=== PATIENT | male | born 1965 | race Hispanic/Latino ===

== ENCOUNTER 2016-07-25 20:39 | Inpatient (IN) | payer OTHER ==
[2016-07-25 21:00] VITALS: BMI 26.6
[2016-07-25] MEDS ORDERED: Sodium Chloride 0.9% 1,000 ML IV STA (21:39)
[2016-07-25] MEDS ORDERED: Morphine 4 mg/ml ISec IVP STA (21:39)
--- NOTE | 2016-07-25 21:45 | ED PDOC ---
Arrival/HPI - General Chief Complaint: Abdominal Pain Time Seen by Provider: 07/25/16 21:15 Historian: Patient - History of Present Illness Narrative History of Present Illness (Text): 07/25/16 21:42 Pato Franco is a 51 year old male, with a past medical history of GERD and GI ulcers, presents to the emergency department complaining of constant abdominal pain since 12 a.m. last night. Patient states that a recent endoscopy revealed a throat mass, which was subsequently excised. Patient complains of associated nausea, but denies vomiting and diarrhea. Patient states that he spoke with his GI doctor, Dr. Zepeda, over the phone who advised him to present to ed for evaluation. Patient reports last bowel movement was today morning which was normal. Took OTC antacids an hour prior to arrival for minimal relief. Denies fever, chills, headache, dizziness, chest pain, SOB, urinary symptoms or any other complaints at this time. PMD: Time/Duration: 24 hours (since 12 a.m today ) Symptom Onset: Gradual Symptom Course: Worsening Quality: Stabbing Severity Level: Mild Activities at Onset: Light Context: Home Past Medical History - Provider Review Nursing Documentation Reviewed: Yes - Past History Past History: No Previous - Infectious Disease Hx of Infectious Diseases: None - Gastrointestinal Hx Gastroesophageal Reflux: Yes Hx Gastrointestinal Ulcer: Yes - Psychiatric Hx Depression: No Hx Emotional Abuse: No Hx Physical Abuse: No Hx Substance Use: No - Past Surgical History Past Surgical History: No Previous - Anesthesia Hx Anesthesia: Yes Hx Anesthesia Reactions: No Hx Malignant Hyperthermia: No - Suicidal Assessment Feels Threatened In Home Enviroment: No Family/Social History - Physician Review Nursing Documentation Reviewed: Yes Family/Social History: No Known Family HX Smoking Status: Heavy Smoker > 10 Cigarettes Daily Hx Alcohol Use: No Hx Substance Use: No Allergies/Home Meds Allergies/Adverse Reactions: Allergies No Known Allergies Allergy (Verified 07/05/12 17:44) Home Medications: Home Meds Medication Instructions Recorded Confirmed No Known Home Med 07/05/12 07/05/12 Review of Systems - Physician Review All systems were reviewed & negative as marked: Yes - Review of Systems Constitutional: Normal. absent: Fatigue, Fevers Respiratory: Normal. absent: SOB, Cough Cardiovascular: Normal. absent: Chest Pain, Palpitations Gastrointestinal: Abdominal Pain, Nausea. absent: Diarrhea, Vomiting Genitourinary Male: Normal. absent: Dysuria Musculoskeletal: Normal. absent: Back Pain Neurological: Normal. absent: Headache, Dizziness Psychiatric: Normal Physical Exam Vital Signs Reviewed: Yes Vital Signs Temp Pulse Resp BP Pulse Ox 07/26/16 01:15 70 18 154/76 H 99 07/25/16 21:03 98.5 F 110 H 18 161/81 H 97 Temperature: Afebrile Blood Pressure: Hypertensive Pulse: Tachycardic Respiratory Rate: Normal Appearance: Positive for: Well-Appearing, Non-Toxic, Comfortable Pain Distress: None Mental Status: Positive for: Alert and Oriented X 3 - Systems Exam Head: Present: Atraumatic, Normocephalic Pupils: Present: PERRL Extroacular Muscles: Present: EOMI Conjunctiva: Present: Normal Respiratory/Chest: Present: Clear to Auscultation, Good Air Exchange. No: Respiratory Distress, Accessory Muscle Use Cardiovascular: Present: Regular Rate and Rhythm, Normal S1, S2. No: Murmurs Abdomen: Present: Tenderness (Right sided abdominal tenderness with guarding. ) , Normal Bowel Sounds. No: Distention, Peritoneal Signs, Rebound Neurological: Present: GCS=15, CN II-XII Intact, Speech Normal Skin: Present: Warm, Dry, Normal Color. No: Rashes Psychiatric: Present: Alert, Oriented x 3, Normal Insight, Normal Concentration Medical Decision Making ED Course and Treatment: 07/25/16 22:02 Impression: A 51 year old male who presents to the ed for evaluation of abdominal pain since 12 am today. On PE, patient has right sided tenderness with guarding. Differential Diagnosis: Abdominal pain: r/o gastritis vs. cholecystitis vs. appendicitis. Plan: -- CT abdomen pelvis -- Labs, lipase -- Morphine -- IV fluids Progress Notes: 07/26/16 00:59 CT abdomen pelvis results reviewed: IMPRESSION: There is short segment small bowel wall thickening in the lower mid to left abdomen. There is an approximately 26 x 24 x 22 mm diverticulum versus contained perforation with adjacent stranding. No free air. Correlation with prior studies and followup imaging is recommended. 07/26/16 01:[address] Trevizo who accepts patient under his service with on surgical consult. Discussed case with residential appraiser who will evaluate patient on bedside. 07/26/16 01:52 Dr. Vogel's, Sonography Technician Dr. Landeros, came to evaluate patient. She discussed case with Dr. Vogel and states no surgical intervention at this time. Will continue IV antibiotics Cipro and Flagyl as already ordered and given. - Critical Care Critical Care Minutes: 30 minutes - Lab Interpretations Lab Results: 07/25/16 22:27 07/25/16 22:27 Lab Results 07/26/16 00:35: PT 11.5, INR 1.06, APTT 33.7 H 07/25/16 22:27: WBC 18.8 H, RBC 5.27, Hgb 16.1, Hct 45.4, MCV 86.1, MCH 30.6, MCHC 35.5, RDW 13.5, Plt Count 265, MPV 10.4, Gran % 76.0 H, Lymph % (Auto) 15.6 L, [place] % (Auto) 7.9 H, Eos % (Auto) 0.3 L, Baso % (Auto) 0.2, Gran # 14.31 H, Lymph # 2.9, [place] # 1.5 H, Eos # 0.1, Baso # 0.04, Sodium 141, Potassium 4.1, Chloride 101, Carbon Dioxide 31, Anion Gap 13, BUN 11, Creatinine 0.8, Est GFR ( Amer) > 60, Est GFR (Non-Af Amer) > 60, Random Glucose 108, Calcium 9.7, Total Bilirubin 0.8, AST 13 L, ALT 10, Alkaline Phosphatase 96, Total Protein 7.8, Albumin 4.1, Globulin 3.7, Albumin/Globulin Ratio 1.1, Lipase 58 I have reviewed the lab results: Yes Interpretation: Abnormal lab values (elevated wbc) - RAD Interpretation Narrative RAD Interpretations (Text): EXAM: CT Abdomen and Pelvis With Intravenous Contrast. FINDINGS: Lower thorax: No acute findings. ABDOMEN: Liver: No acute findings. No mass. Gallbladder and bile ducts: No acute findings. No calcified stones. No ductal dilation. Pancreas: No acute findings. No mass. No ductal dilation. Spleen: No acute findings. No splenomegaly. Adrenals: No acute findings. No mass. Kidneys and ureters: No acute findings. No solid mass. No hydronephrosis. Stomach and bowel: There is short segment small bowel wall thickening in the lower mid to left abdomen. There is an approximately 26 x 24 x 22 mm diverticulum versus contained perforation with adjacent stranding. No free air. Appendix: No findings to suggest acute appendicitis. PELVIS: Bladder: No acute findings. No mass. Reproductive: No acute findings. ABDOMEN and PELVIS: Intraperitoneal space: See above. Bones/joints: No acute fracture. No dislocation. Soft tissues: No acute findings. Vasculature: No acute findings. No abdominal aortic aneurysm. Lymph nodes: No acute findings. No enlarged lymph nodes. IMPRESSION: There is short segment small bowel wall thickening in the lower mid to left abdomen. There is an approximately 26 x 24 x 22 mm diverticulum versus contained perforation with adjacent stranding. No free air. Correlation with prior studies and followup imaging is recommended. Radiology Orders: 07/25/16 21:40 ABD & PELVIS IV CONTRAST ONLY [CT] Stat [employer] Support: Radiologist - Medication Orders Current Medication Orders: Ciprofloxacin (Cipro 400mg/200ml Dsw) 200 mls @ 133.3 mls/hr IVPB STAT STA PRN Reason: Protocol Stop: 07/26/16 02:28 Metronidazole (Flagyl) 100 mls @ 100 mls/hr IVPB STAT STA PRN Reason: Protocol Stop: 07/26/16 01:57 Last Admin: 07/26/16 01:49 Dose: 100 MLS/HR eMAR Start Stop Document 07/26/16 01:49 SB (Rec: 07/26/16 01:49 SB [id number]) Intravenous Solution Start Date 07/26/16 Start Time 01:49 End Date 07/26/16 Discontinued Medications Sodium Chloride (Sodium Chloride 0.9%) 1,000 mls @ 1,000 mls/hr IV .Q1H STA Stop: 07/25/16 22:38 Last Admin: 07/25/16 22:34 Dose: 1,000 MLS/HR eMAR Start Stop Document 07/25/16 22:34 SB (Rec: 07/25/16 22:34 [place] [id number]) Intravenous Solution Start Date 07/25/16 Start Time 22:34 End Date 07/25/16 Iohexol (Omnipaque 350 100 Ml) Confirm Administered Dose 350 mg .ROUTE .STK-MED ONE Stop: 07/25/16 23:34 Morphine Sulfate (Morphine) 4 mg IVP STAT STA Stop: 07/25/16 21:40 Last Admin: 07/25/16 22:34 Dose: 4 MG MAR Pain Assessment Document 07/25/16 22:34 SB (Rec: 07/25/16 22:34 SB [id number]) Pain Reassessment Is this a pain reassessment? No Sleep Is patient sleeping during reassessment? No Presence of Pain Presence of Pain Yes Pain Scale Used Pain Scale Used Numeric Location Pain Location Body Site Abdomen Description Description Constant Intensity of Pain at present 7 IVP Administration Document 07/25/16 22:34 SB (Rec: 07/25/16 22:34 SB [id number]) Charges for Administration # of IVP Administrations 1 - Scribe Statement The provider has reviewed the documentation as recorded by the Daysi Freeman Provider Attestation: All medical record entries made by the Daysi were at my direction and personally dictated by me. I have reviewed the chart and agree that the record accurately reflects my personal performance of the history, physical exam, medical decision making, and the department course for this patient. I have also personally directed, reviewed, and agree with the discharge instructions and disposition. Disposition/Present on Arrival - Present on Arrival Any Indicators Present on Arrival: No History of DVT/PE: No History of Uncontrolled Diabetes: No Urinary Catheter: No History of Decub. Ulcer: No History Surgical Site Infection Following: None - Disposition Have Diagnosis and Disposition been Completed?: Yes Diagnosis: Perforated diverticulum Disposition: HOSPITALIZED Disposition Time: 01:08 Patient Plan: Admission Condition: FAIR
[2016-07-25 22:33] LABS: ADD MANUAL DIFF? NO
[2016-07-25 22:47] LABS: ALB/GLOB RATIO 1.1 (1.1-1.8); ALKALINE PHOSPHATASE 96 U/L (38-133); ALT/SGPT 10 U/L (7-56); AST/SGOT 13 U/L (15-59); BILIRUBIN,TOTAL 0.8 mg/dL (0.2-1.3); BLOOD UREA NITROGEN 11 mg/dL (7-21); CALCIUM 9.7 mg/dL (8.4-10.5); CARBON DIOXIDE 31 mmol/L (21-33); CHLORIDE 101 mmol/L (98-107); GFR AFRICAN-AMERICAN > 60; GLUCOSE,RANDOM 108 mg/dL (70-110); LIPASE 58 U/L (23-300); POTASSIUM 4.1 mmol/L (3.6-5.0); SODIUM 141 mmol/L (132-148); TOTAL PROTEIN 7.8 g/dL (5.8-8.3)
[2016-07-25 22:53] LABS: BASO # 0.04 K/mm3 (0.0-2.0); BASO % 0.2 % (0.0-3.0); EOS # 0.1 (0.0-0.7); EOS % 0.3 % (1.5-5.0); GRAN # 14.31 (1.4-6.5); HEMATOCRIT 45.4 % (42.0-52.0); LYMPH # 2.9 (1.2-3.4); LYMPH % 15.6 % (22.0-35.0); MEAN CELL VOLUME 86.1 fL (80.0-105.0); MEAN CORPUSCULAR HEMOGLOBIN 30.6 pg (25.0-35.0); MEAN CORPUSCULAR HGB CONC 35.5 g/dl (31.0-37.0); MEAN PLATELET VOLUME 10.4 fl (7.0-11.0); MONO # 1.5 (0.1-0.6); MONO % 7.9 % (1.0-6.0); PLATELET COUNT 265 10^3/uL (120.0-450.0); RED CELL DISTRIBUTION WIDTH 13.5 % (11.5-14.5); WHITE BLOOD COUNT 18.8 10^3/ul (4.5-11.0)
[2016-07-25] MEDS ORDERED: Iohexol 350 MG/100 ML VIAL ONE (23:33)
[2016-07-26] MEDS ORDERED: Ciprofloxacin 400mg/200ml D5W 200 ML IVPB STA (00:58)
[2016-07-26] MEDS ORDERED: metroNIDAZOLE IV 500 mg/100 ml 100 ML IVPB STA (00:58)
[2016-07-26 01:33] LABS: INR 1.06 (0.93-1.08); PARTIAL THROMBOPLASTIN TIME 33.7 Seconds (23.7-30.8)
--- NOTE | 2016-07-26 02:08 | CP.PCM.CON ---
History of Present Illness - History of Present Illness History of Present Illness: Surgery Consult: Dr. Vogel 51 M w PMH of GERD and PUD came to ED with sudden abd pain for 1 day. Pain is located on the middle of the abd and is localized below the umbilicus. No radiation. Pain has gotten worse. This is the first time having this kind of pain. Denies F/C/N/V/D/CP/SOB/recent travel/sick contact/hematochezia/ hematemesis/melena/trauma. Pt had regular BM this AM. Pt reports having lactose intolerance. He recently ate cereals which he hasn't eaten in last 5 years. Pt sees GI but hasn't had c-scope. PMH: PUD, GERD, lactose intolerance Med: Nexium SS: Smoker GI: [facility]inski. Had EGD 6month ago. No c-scope. Review of Systems - Constitutional Constitutional: absent: Anorexia, Chills - Respiratory Respiratory: absent: Cough, Dyspnea - Gastrointestinal Gastrointestinal: Abdominal Pain. absent: Bloating, Change in Stool Character, Constipation, Diarrhea, Dysphagia, Excessive Flatus, Fecal Incontinence, Vomiting Past Patient History - Infectious Disease Hx of Infectious Diseases: None - Past Social History Smoking Status: Heavy Smoker > 10 Cigarettes Daily - GASTROINTESTINAL Hx Gastroesophageal Reflux: Yes - PSYCHIATRIC Hx Depression: No Hx Emotional Abuse: No Hx Physical Abuse: No Hx Substance Use: No - ANESTHESIA Hx Anesthesia: Yes Hx Anesthesia Reactions: No Hx Malignant Hyperthermia: No Meds Allergies/Adverse Reactions: Allergies Allergy/AdvReac Type Severity Reaction Status Date / Time No Known Allergies Allergy Verified 07/05/12 17:44 - Medications Medications: Current Medications Acetaminophen (Tylenol 650 Mg Supp) 650 mg RC Q4H PRN PRN Reason: Fever >100.4 F Hydromorphone HCl (Dilaudid) 0.5 mg IVP Q4H PRN PRN Reason: Pain, severe (8-10) Ciprofloxacin (Cipro 400mg/200ml Dsw) 200 mls @ 133.3 mls/hr IVPB STAT STA PRN Reason: Protocol Stop: 07/26/16 02:28 Ciprofloxacin (Cipro 400mg/200ml Dsw) 200 mls @ 133.3 mls/hr IVPB Q12 KAYLEN PRN Reason: Protocol Stop: 07/26/16 11:31 Metronidazole (Flagyl) 100 mls @ 100 mls/hr IVPB Q6 KAYLEN PRN Reason: Protocol Sodium Chloride (Sodium Chloride 0.9%) 1,000 mls @ 150 mls/hr IV .Q6H40M KAYLEN Pantoprazole Sodium (Protonix Inj) 40 mg IVP DAILY KAYLEN Physical Exam - Constitutional Appears: No Acute Distress - Head Exam Head Exam: ATRAUMATIC, NORMAL INSPECTION, NORMOCEPHALIC - Eye Exam Eye Exam: EOMI, Normal appearance, PERRL Pupil Exam: NORMAL ACCOMODATION, PERRL - ENT Exam ENT Exam: Mucous Membranes Moist, Normal Exam - Neck Exam Neck exam: Positive for: Normal Inspection - Respiratory Exam Respiratory Exam: NORMAL BREATHING PATTERN. absent: Decreased Breath Sounds - Cardiovascular Exam Cardiovascular Exam: REGULAR RHYTHM - GI/Abdominal Exam GI & Abdominal Exam: Soft, Tenderness. absent: Distended, Firm, Guarding, Hernia, Mass, Rebound, Rigid Additional comments: Mid abd TTP - Extremities Exam Extremities exam: Positive for: normal inspection - Back Exam Back exam: NORMAL INSPECTION - Neurological Exam Neurological exam: Alert, CN II-XII Intact, Normal Gait, Oriented x3, Reflexes Normal - Psychiatric Exam Psychiatric exam: Normal Affect, Normal Mood - Skin Skin Exam: Dry, Intact, Normal Color, Warm Results - Vital Signs Recent Vital Signs: Last Vital Signs Temp 98.5 F 07/25/16 21:03 Pulse 70 07/26/16 01:15 Resp 18 07/26/16 01:15 BP 154/76 H 07/26/16 01:15 Pulse Ox 99 07/26/16 01:15 - Labs Result Diagrams: 07/25/16 22:27 07/25/16 22:27 Labs: Laboratory Results - last 24 hr 07/25/16 07/26/16 22:27 00:35 WBC 18.8 H RBC 5.27 Hgb 16.1 Hct 45.4 MCV 86.1 MCH 30.6 MCHC 35.5 RDW 13.5 Plt Count 265 MPV 10.4 Gran % 76.0 H Lymph % (Auto) 15.6 L [place] % (Auto) 7.9 H Eos % (Auto) 0.3 L Baso % (Auto) 0.2 Gran # 14.31 H Lymph # 2.9 [place] # 1.5 H Eos # 0.1 Baso # 0.04 PT 11.5 INR 1.06 APTT 33.7 H Sodium 141 Potassium 4.1 Chloride 101 Carbon Dioxide 31 Anion Gap 13 BUN 11 Creatinine 0.8 Est GFR ( Amer) > 60 Est GFR (Non-Af Amer) > 60 Random Glucose 108 Calcium 9.7 Total Bilirubin 0.8 AST 13 L ALT 10 Alkaline Phosphatase 96 Total Protein 7.8 Albumin 4.1 Globulin 3.7 Albumin/Globulin Ratio 1.1 Lipase 58 Assessment & Plan - Assessment and Plan (Free Text) Assessment: Perforated diverticulum CT: 2.5 x 2.5cm perforated diverticulum in mid abd. No free air. WBC 19 -Cipro/Flagyl -NPO -IVF 150/hr -Tylenol for fever -Protonix -Zofran -Serial abd exam -We will closely monitor -GI consult DW Dr. Vogel
[2016-07-26] MEDS: Sodium Chloride 0.9% 1,000 ML IV SCH (02:35)
[2016-07-26] MEDS: HYDROmorphone 0.5 mg/0.5 ml ISec IVP PRN ×4 (02:47→20:00)
[2016-07-26] MEDS: metroNIDAZOLE IV 500 mg/100 ml 100 ML IVPB SCH ×3 (05:30→19:30)
[2016-07-26 07:13] LABS: ADD MANUAL DIFF? NO
[2016-07-26 07:18] LABS: BASO # 0.03 K/mm3 (0.0-2.0); BASO % 0.2 % (0.0-3.0); EOS # 0.1 (0.0-0.7); EOS % 0.5 % (1.5-5.0); GRAN # 12.35 (1.4-6.5); GRAN % 75.1 % (50.0-68.0); HEMATOCRIT 45.5 % (42.0-52.0); LYMPH # 2.5 (1.2-3.4); LYMPH % 15.1 % (22.0-35.0); MEAN CELL VOLUME 86.5 fL (80.0-105.0); MEAN CORPUSCULAR HEMOGLOBIN 29.7 pg (25.0-35.0); MEAN CORPUSCULAR HGB CONC 34.3 g/dl (31.0-37.0); MEAN PLATELET VOLUME 10.2 fl (7.0-11.0); MONO # 1.5 (0.1-0.6); MONO % 9.1 % (1.0-6.0); PLATELET COUNT 235 10^3/uL (120.0-450.0); RED CELL DISTRIBUTION WIDTH 13.6 % (11.5-14.5); WHITE BLOOD COUNT 16.4 10^3/ul (4.5-11.0)
[2016-07-26 07:29] LABS: ALB/GLOB RATIO 1.2 (1.1-1.8); ALKALINE PHOSPHATASE 89 U/L (38-133); ALT/SGPT 15 U/L (7-56); AST/SGOT 12 U/L (15-59); BILIRUBIN,TOTAL 0.9 mg/dL (0.2-1.3); BLOOD UREA NITROGEN 10 mg/dL (7-21); CALCIUM 9.4 mg/dL (8.4-10.5); CARBON DIOXIDE 31 mmol/L (21-33); CHLORIDE 105 mmol/L (95-110); GFR AFRICAN-AMERICAN > 60; GLUCOSE,RANDOM 107 mg/dL (70-110); POTASSIUM 4.8 mmol/L (3.6-5.0); SODIUM 144 mmol/L (132-148); TOTAL PROTEIN 7.3 g/dL (5.8-8.3)
--- NOTE | 2016-07-26 09:45 | CT ---
PROCEDURE: CT Abdomen and Pelvis with contrast HISTORY: abd pain r/o appy r/o cholecytitis COMPARISON: None. TECHNIQUE: Multidetector CT scan of the abdomen and pelvis was performed after intravenous administration of contrast. Oral contrast was not administered. Coronal and sagittal reformatted images were obtained. Contrast dosage: 100 mL omnipaque for 350 Radiation dose: Total exam DLP = 544.26 mGy-cm. FINDINGS: LOWER THORAX: The lung bases are clear. LIVER: The liver is normal in size and there is homogeneous enhancement. No gross lesion or ductal dilatation. GALLBLADDER AND BILE DUCTS: There are no calcified gallstones. PANCREAS: The pancreas is normal in size and there is homogeneous enhancement. No gross lesion or ductal dilatation. SPLEEN: The spleen is normal in size and there is homogeneous enhancement. ADRENALS: Both adrenal glands are normal in size without discrete nodule. KIDNEYS AND URETERS: Both kidneys are normal in size and there is homogeneous enhancement without hydronephrosis or solid mass. There are tiny in both kidneys, the largest exophytic cyst in the lower pole of the left kidney measures 15 mm. 5 mm linear calcification in the upper pole of the left kidney may represent vascular calcification or small nonobstructing stone. VASCULATURE: There are early atherosclerotic aortoiliac calcifications. No aortic aneurysm. BOWEL: The proximal small bowel loops are normal in caliber. Within the left paramedian lower abdomen there is 2.0 x 1.6 cm or 14 containing fluid and air adjacent to the mid small bowel loops. There is significant mesenteric fat stranding surrounding this outpouching and a segment of the mid small bowel loops. APPENDIX: Normal appendix. PERITONEUM: No free-fluid. No free intraperitoneal air. LYMPH NODES: No enlarged lymph nodes. BLADDER: Grossly within normal limits. REPRODUCTIVE: The prostate gland is normal in size. BONES: There are advanced multilevel degenerative changes with multilevel vacuum. There is a limbus vertebra at L4 and age indeterminate mild compression deformities that T11 and L2. OTHER FINDINGS: None. IMPRESSION: 1. 2.0 x 1 point cm of 14 containing fluid and air in the left paramedian lower abdomen with significant surrounding mesenteric fat stranding adjacent to mid small bowel loops may represent a diverticulum. Contained perforation and segmental nonspecific infectious/ inflammatory enteritis is also a consideration. No evidence of abscess or drainable fluid collection. A preliminary report was provided by [employer]?.
[2016-07-26] MEDS ORDERED: Ciprofloxacin 400mg/200ml D5W 200 ML IVPB SCH (10:00)
--- NOTE | 2016-07-26 10:46 | CON ---
DATE: 07/26/2016 I examined the patient this morning. 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 The patient called me last night indicating a severe degree of abdominal pain occurring over about a day and a half or so, increasing in intensity, not associated with hematemesis or rectal bleeding. There was radiation to the back, especially on the left side. It was associated also with increased urination. Abdomen was becoming extremely distended and the pain level he indicated was roughly 10/10. I advised him to go to the Emergency Room. The patient has no family history of diverticulitis and he has not experienced a previous episode like this before. PHYSICAL EXAMINATION: VITAL SIGNS: I reviewed this patient's vital signs. HEENT: Noncontributory except for being dry mouth. LUNGS: Clear to auscultation. HEART: Regular rhythm. ABDOMEN: Significant for being distended. He was guarding diffusely, especially in the area of the left lower quadrant. Bowel sounds are hypoactive and irregular. Evaluation in the area of the right lower quadrant was tight. He did experience some discomfort, radiation, worse in the left lower quadrant. There was also radiation of discomfort to the left lower quadrant on palpation of the periumbilical area. Again, the periumbilical area was mildly distended. There is no discomfort in the area above the umbilicus. There was a fullness experienced in the left upper and left lower quadrants, especially the left lower quadrant. This is associated with significant pain on exam and guarding. I reviewed this patient's laboratory data. WBCs 19,000 with an H and H of 16/ 45. Coagulation was within normal limits. Chemistry pretty much noncontributory. I reviewed the patient's CT scan. This was significant for a significant amount of stool in the area of the ascending colon as well as proximal transverse. In the area of the descending colon, there is a thick walled small bowel. Also, it looked to me, especially in the sigmoid area, a thick walled sigmoid colon with possibly a small walled off perforation with significant amount of stranding. I did not see any free air on the CT. Note that the CT is not interpreted at this point in time. This correlates with his clinical exam with a significant amount of fullness in the area of the left paraumbilical and the left lower quadrant. 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 The patient is currently on antibiotic therapy which consists of Cipro and metronidazole. I am assuming the Cipro will have to be changed later on to probably something similar to Augmentin or Rocephin. This will be at the discretion of Dr. Vogel when he evaluates the patient later. Overall therapy should probably be either Levaquin or Rocephin plus metronidazole. It will be at the discretion of Dr. Vogel whether he elects to take the patient to the operating room today. Note the patient is still having a substantial amount of pain despite analgesics. Looking through his medications, the patient is on pantoprazole daily. I will add Zofran on a q. 4 hour basis. The patient is currently n.p.o. Josue Zepeda DO, PhD cc: [id number] TT: 07/26/2016 10:46:24 Confirmation # [id number] Dictation # [id number] MTDD
[2016-07-26] MEDS: cefTRIAXone 1 gm 100 ML IVPB SCH (16:01)
--- NOTE | 2016-07-26 19:02 | RAD ---
HISTORY: pre-op COMPARISON: 07/05/2012 FINDINGS: LUNGS: No active pulmonary disease. PLEURA: No significant pleural effusion identified, no pneumothorax apparent. CARDIOVASCULAR: Normal. OSSEOUS STRUCTURES: No significant abnormalities. VISUALIZED UPPER ABDOMEN: Normal. OTHER FINDINGS: None. IMPRESSION: No active disease.
[2016-07-27] MEDS: metroNIDAZOLE IV 500 mg/100 ml 100 ML IVPB SCH ×4 (01:00→23:26)
[2016-07-27] MEDS: Sodium Chloride 0.9% 1,000 ML IV SCH ×2 (04:00→05:41)
[2016-07-27] MEDS: HYDROmorphone 0.5 mg/0.5 ml ISec IVP PRN (05:48)
--- NOTE | 2016-07-27 06:04 | PN ---
DATE: 07/27/2016 I examined the patient this morning. He is a 51-year-old white male known to [employer] consultant, admitted with complaints of severe abdominal pain, nausea, vomiting , radiation of pain to the back, especially on the left side with signs and symptoms suggestive of acute diverticulitis. As noted in my consultation yesterday, the clinical picture suggestive of a possible perforated diverticulum in the area of the descending colon, possibly sigmoid as well. The patient has significant guarding yesterday. He still has this morning. The abdomen is still distended and bowel sounds are very irregular. He exhibits pain which is significant on movement; however, staying still. The discomfort has been decreased with the use of analgesics as well as antibiotics. He is passing small amount of flatus. I reviewed discussion of the surgeon as well as the x-ray findings this morning. PHYSICAL EXAMINATION: VITAL SIGNS: I reviewed this patient's vital signs. HEENT: Noncontributory. LUNGS: Clear to auscultation. HEART: Regular rhythm. ABDOMEN: Significant for being distended. He is very tight in the area of the ascending colon, but does not exhibit much tenderness in the area of the supraumbilical area. There is no tenderness also within the epigastric, right upper quadrant as well as the left upper quadrant subcostal area. Palpation in periumbilical area produced radiation of pain down the left lower quadrant, similarly the left paraumbilical. Note that there was a significant fullness experienced in the left paraumbilical extending all the way down to the deep left lower quadrant. Palpation of the latter area is associated with significant amount of pain. I reviewed this patient's most recent laboratory data. Most recent chest x-ray was not significant for free air. OVERALL ASSESSMENT: This is a 51-year-old white male admitted with signs and symptoms suggestive of acute diverticulitis. X-ray findings suggestive of possibly perforated diverticulum with adjacent inflammatory activity in the small bowel. At least by clinical exam, would suggest most likely possibility for this is a perforated diverticulum if that is what this is. This is located in the distal descending and sigmoid area. This seems to be the worst area was found on physical exam. The patient continues on antibiotic therapy in the form of ceftriaxone plus metronidazole, which is adequate. Still on Zofran and IV fluids as well as pantoprazole. Although, the latter is adequate. Note that after discussion this morning, he will have a more informed discussion with the surgeon later on this morning and we will decide for possible exploratory laparoscopy. The issue of a segmental colectomy was discussed. Dr. Vogel will discuss possible options with the patient later on this morning and I will keep the patient on n.p.o. until further notice. Any further orders as far as antibiotics or such will be at the discretion of Dr. Vogel. Josue Zepeda DO, PhD cc: [id number] TT: 07/27/2016 06:03:17 Confirmation # [id number] Dictation # [id number] MTDD
[2016-07-27 06:36] LABS: ADD MANUAL DIFF? NO
[2016-07-27 06:38] LABS: BASO # 0.03 K/mm3 (0.0-2.0); BASO % 0.2 % (0.0-3.0); EOS # 0.1 (0.0-0.7); EOS % 0.4 % (1.5-5.0); GRAN # 12.85 (1.4-6.5); GRAN % 78.3 % (50.0-68.0); HEMATOCRIT 41.2 % (42.0-52.0); LYMPH # 1.9 (1.2-3.4); LYMPH % 11.5 % (22.0-35.0); MEAN CELL VOLUME 87.5 fL (80.0-105.0); MEAN CORPUSCULAR HEMOGLOBIN 29.5 pg (25.0-35.0); MEAN CORPUSCULAR HGB CONC 33.7 g/dl (31.0-37.0); MEAN PLATELET VOLUME 10.2 fl (7.0-11.0); MONO # 1.6 (0.1-0.6); MONO % 9.6 % (1.0-6.0); PLATELET COUNT 220 10^3/uL (120.0-450.0); RED CELL DISTRIBUTION WIDTH 13.5 % (11.5-14.5); WHITE BLOOD COUNT 16.4 10^3/ul (4.5-11.0)
[2016-07-27 06:53] LABS: ALB/GLOB RATIO 1.1 (1.1-1.8); ALKALINE PHOSPHATASE 85 U/L (38-133); ALT/SGPT 12 U/L (7-56); AST/SGOT 15 U/L (15-59); BILIRUBIN,TOTAL 1.2 mg/dL (0.2-1.3); BLOOD UREA NITROGEN 15 mg/dL (7-21); CALCIUM 8.9 mg/dL (8.4-10.5); CARBON DIOXIDE 29 mmol/L (21-33); CHLORIDE 105 mmol/L (98-107); GFR AFRICAN-AMERICAN > 60; GLUCOSE,RANDOM 96 mg/dL (70-110); POTASSIUM 4.6 mmol/L (3.6-5.0); SODIUM 141 mmol/L (132-148); TOTAL PROTEIN 6.8 g/dL (5.8-8.3)
[2016-07-27] MEDS: cefTRIAXone 1 gm 100 ML IVPB SCH (10:22)
--- NOTE | 2016-07-27 12:48 | PN ---
DATE: 07/27/2016 The patient is a 51-year-old male with a past medical history positive for gastroesophageal reflux di sease and peptic ulcer, who developed a sudden onset of abdominal pain. He was admitted yesterday to the [facility]. CAT scan at the time of admission showed a possible ruptured diverticulum in the left lower quadrant, questionable if this is originating from the sigmoid colon v ersus small bowel. He has been treated with Cipro and Flagyl p.o. When seen today, [facility]. He is sitting up in the bed. He says his pain is somewhat subsided. PHYSICAL EXAMINATION: ABDOMEN: marking machine tender on palpation. LUNGS: Clear. HEART: Regular. LABORATORY DATA: White blood cell count came down slightly to 16.4, hemoglobin and hematocrit are st able. BUN and creatinine is 10 and 0.8 respectively. VITAL SIGNS: He is afebrile at 99.1 degrees Fahrenheit, blood pressure is 152/70 with a heart rate o f 102. I spoke with Dr. Macho Vogel, the general surgeon earlier today, the patient will be going to the OR for exploratory laparoscopy and depending on the findings either an abscess will be drained or th e patient will undergo resection of segments of the colon. The patient is in agreement with this as is the patient's . I am in agreement with this as well. We will continue to follow the patient closely postoperatively. Jaylen Macias MD cc: [phone] TT: 07/27/2016 12:47:43 Confirmation # [id number] Dictation # [id number] jn
--- NOTE | 2016-07-27 13:00 | HP ---
HISTORY OF PRESENT ILLNESS: The patient is a 51-year-old male with essentially no past medical history, except for some GI problems, GERD, and possible ulcers in the past; who developed abdominal pain rather suddenly in the middle of the night. The patient presented to the Emergency Room, is evaluated and admitted. He admits to nausea, but no vomiting, no diarrhea. PAST MEDICAL HISTORY: Positive for gastroesophageal reflux, peptic ulcers. He is taking no medications at the time of admission. SOCIAL HISTORY: He smokes approximately 1 pack of cigarettes a day. He is a nonalcoholic drinker. ALLERGIES: He has no known medical allergies. REVIEW OF SYSTEMS: Otherwise, negative. PHYSICAL EXAMINATION: HEENT: Unremarkable. NECK: Supple, with no lymphadenopathy, no goiter. LUNGS: Clear to auscultation and percussion. HEART: Regular. No murmurs, gallops, or rubs are appreciated. ABDOMEN: Slightly distended. There is diffuse abdominal tenderness. Bowel sounds are normal. There is no rebound tenderness. EXTREMITIES: Free of cyanosis, clubbing, or edema. NEUROLOGIC: The patient is awake, alert, and oriented with no focal neurological signs. LABORATORY STUDIES: Showed the white blood cell count to be 18.8, hemoglobin and hematocrit are 16.1 and 45.4, platelet count is 265. Serum chemistries are unremarkable with a BUN and creatinine of 11 and 0.8, respectively. Sodium is 141, potassium is 41. Liver enzymes are unremarkable. He was found to have O positive type blood. His blood pressure is 152/70, heart rate of 102, and he is afebrile. CAT scan of the abdomen shows a possible diverticulum, in the left lower quadrant. Questionable if this is perforated or not. The patient is admitted. He was treated with intravenous Cipro and Flagyl. He is n.p.o. He will be seen by Dr. Zepeda, his triage technician. We are asking Dr. Macho Vogel , the surgeon, to consult. Jaylen Macias MD cc: [phone] TT: 07/27/2016 12:59:00 ln [email or web address]
--- NOTE | 2016-07-27 14:19 | PN ---
DATE: 07/27/2016 The patient is seen on the floor. The discussion is made. He is [employer] left lower quadrant wi th a white count of 16. The options we have are continue the antibiotics or do a laparoscopy. Discu ssed this case in great length with Dr. Khan who believes this is a small bowel perforation from a d iverticulum rather than a diverticular colonic abscess. The small bowel completely closes this absce ss making it not amenable to drainage percutaneously. Discussed with Dr. Macias and the family, w ill plan to do a laparoscopy today. Macho Vogel MD cc: [phone] TT: 07/27/2016 14:19:04 Confirmation # [id number] Dictation # [id number] cn
[2016-07-27] MEDS ORDERED: Bupivacaine 0.5% Inj(30mL) ONE (14:45)
[2016-07-27] MEDS ORDERED: Succinylcholine 200 mg/10 ml Inj IV ONE (15:13)
[2016-07-27] MEDS ORDERED: Rocuronium 10 mg/ml (5 ml) ONE (15:13)
[2016-07-27] MEDS ORDERED: Midazolam 2 MG/2 ML VIAL ONE (15:13)
[2016-07-27] MEDS ORDERED: Propofol 10 mg/ml Inj (20 ML) ONE ×2 (15:13→16:15)
[2016-07-27] MEDS ORDERED: metroNIDAZOLE IV 500 mg/100 ml 100 ML ONE (15:17)
[2016-07-27] MEDS ORDERED: Oxychlorosene Topical 2 gm Packet TOP ONE (15:56)
[2016-07-27] MEDS ORDERED: Neostigmine Methylsulfate 3mg/3ml Syringe IV ONE (16:05)
[2016-07-27] MEDS ORDERED: HYDROmorphone 0.5 mg/0.5 ml ISec IVP PRN (16:53)
--- NOTE | 2016-07-27 16:53 | PCM.SURG1 ---
Surgeon's Initial Post Op Note - Surgeon's Notes Surgeon: Dr. Vogel Biology Department Chair: Stacia Hough, PGY1 Type of Anesthesia: General Endo Pre-Operative Diagnosis: Intra-abdominal abscess Operative Findings: See full report Post-Operative Diagnosis: Perforated meckel's diverticulum Operation Performed: Exploratory laparotomy, small bowel resection Specimen/Specimens Removed: abscess culture, small bowel Estimated Blood Loss: EBL {In ML}: 50 Drains Used: No Drains Date of Surgery/Procedure: 07/27/16 Time of Surgery/Procedure: 15:20
[2016-07-27] MEDS ORDERED: Labetalol 5 mg/ml Inj 20ML IV ONE ×2 (16:55→16:57)
[2016-07-27] MEDS ORDERED: Labetalol 5 mg/ml Inj 20ML ONE (16:56)
[2016-07-27] MEDS ORDERED: Lactated Ringer's 1,000 ML IV SCH (17:00)
[2016-07-27] MEDS ORDERED: Labetalol 5 mg/ml Inj 20ML IV PRN (17:03)
[2016-07-27] MEDS ORDERED: HYDROmorphone 0.5 mg/0.5 ml ISec IVP ONE ×2 (17:14→17:38)
[2016-07-27] MEDS ORDERED: HYDROmorphone 1 mg/ml ISec ONE (17:14)
[2016-07-27] MEDS: HYDROmorphone 1 mg/ml ISec IVP PRN ×3 (17:28→23:08)
[2016-07-27] MEDS ORDERED: HYDROmorphone 0.5 mg/0.5 ml ISec ONE (17:37)
--- NOTE | 2016-07-28 00:13 | CP.PCM.PN ---
Subjective - Date & Time of Evaluation Date of Evaluation: 07/28/16 Time of Evaluation: 06:45 - Subjective Subjective: General Surgery progress note for Dr. Vogel Pt s/e at bedside. NAEO. Patient reports pain is adequately controlled on current regimen. Denies nausea, vomiting, fevers, chills, SOB, or chest pain. Reports passing gas Objective - Vital Signs/Intake and Output Vital Signs (last 24 hours): Temp Pulse Resp BP Pulse Ox 98.7 F 118 H 17 153/84 H 92 L 07/27/16 23:55 07/27/16 23:55 07/27/16 23:55 07/27/16 23:55 07/27/16 23:55 Intake and Output: 07/27/16 07/28/16 18:59 06:59 Intake Total 0 Output Total 200 Balance -200 - Medications Medications: Current Medications Acetaminophen (Tylenol 650 Mg Supp) 650 mg RC Q4H PRN PRN Reason: Fever >100.4 F Hydromorphone HCl (Dilaudid) 1 mg IVP Q4H PRN PRN Reason: Pain, moderate (4-7) Last Admin: 07/27/16 23:08 Dose: 1 mg Metronidazole (Flagyl) 100 mls @ 100 mls/hr IVPB Q6 [facility] PRN Reason: Protocol Last Admin: 07/27/16 23:26 Dose: 100 mls/hr Ceftriaxone Sodium (Rocephin 1 Gram Ivpb) 100 mls @ 100 mls/hr IVPB DAILY [facility] PRN Reason: Protocol Stop: 07/30/16 10:59 Last Admin: 07/27/16 10:22 Dose: 100 mls/hr Sodium Chloride (Sodium Chloride 0.9%) 1,000 mls @ 125 mls/hr IV .Q8H [facility] Labetalol HCl (Trandate) 5 mg IV Q10M PRN PRN Reason: hypertension Ondansetron HCl (Zofran Inj) 4 mg IVP Q8H PRN PRN Reason: Nausea/Vomiting Pantoprazole Sodium (Protonix Inj) 40 mg IVP DAILY [facility] Last Admin: 07/27/16 10:23 Dose: 40 mg - Labs Labs: 07/27/16 06:33 07/27/16 06:33 PT 11.5 Seconds (9.9-11.8) 07/26/16 00:35 INR 1.06 (0.93-1.08) 07/26/16 00:35 APTT 33.7 Seconds (23.7-30.8) H 07/26/16 00:35 - Constitutional Appears: Well, Non-toxic, No Acute Distress - Head Exam Head Exam: ATRAUMATIC, NORMOCEPHALIC - Eye Exam Eye Exam: Normal appearance - ENT Exam ENT Exam: Mucous Membranes Moist - Respiratory Exam Respiratory Exam: NORMAL BREATHING PATTERN. absent: Accessory Muscle Use, Respiratory Distress - GI/Abdominal Exam GI & Abdominal Exam: Soft, Tenderness (appropriately tender to palpation). absent: Distended Additional comments: Surgical dressing dry, intact, minimal serous saturation - Extremities Exam Extremities Exam: absent: Calf Tenderness, Pedal Edema, Tenderness - Neurological Exam Neurological Exam: Alert, Awake, Oriented x3 - Psychiatric Exam Psychiatric exam: Normal Affect, Normal Mood - Skin Skin Exam: Dry, Intact, Normal Color, Warm Assessment and Plan - Assessment and Plan (Free Text) Assessment: 51M with perforated Meckel's diverticulum POD#1 s/p exploratory laparotomy with small bowel resection WBC decreasing Plan: -serial abdominal exams -monitor WBC -f/u abscess culture and pathology specimen -continue Abx -continue management per primary team -pain management, anti-emetics, GI/DVT ppx Discussed with Dr. Jaspreet Hough, PGY1
[2016-07-28] MEDS: HYDROmorphone 1 mg/ml ISec IVP PRN ×7 (03:28→22:00)
[2016-07-28] MEDS: metroNIDAZOLE IV 500 mg/100 ml 100 ML IVPB SCH ×5 (05:24→23:20)
[2016-07-28] MEDS: Sodium Chloride 0.9% 1,000 ML IV SCH ×2 (05:25→15:00)
[2016-07-28 06:46] LABS: HEMATOCRIT 39.9 % (42.0-52.0); MEAN CELL VOLUME 86.7 fL (80.0-105.0); MEAN CORPUSCULAR HEMOGLOBIN 29.6 pg (25.0-35.0); MEAN CORPUSCULAR HGB CONC 34.1 g/dl (31.0-37.0); MEAN PLATELET VOLUME 10.6 fl (7.0-11.0); PLATELET COUNT 239 10^3/uL (120.0-450.0); RED CELL DISTRIBUTION WIDTH 13.4 % (11.5-14.5); WHITE BLOOD COUNT 15.5 10^3/ul (4.5-11.0)
[2016-07-28 06:57] LABS: ADD MANUAL DIFF? YES
[2016-07-28 06:58] LABS: ALKALINE PHOSPHATASE 78 U/L (38-133); ALT/SGPT 10 U/L (7-56); AST/SGOT 16 U/L (15-59); BILIRUBIN,TOTAL 0.6 mg/dL (0.2-1.3); BLOOD UREA NITROGEN 15 mg/dL (7-21); CARBON DIOXIDE 26 mmol/L (21-33); CHLORIDE 106 mmol/L (98-107); GFR AFRICAN-AMERICAN > 60; GLUCOSE,RANDOM 149 mg/dL (70-110); POTASSIUM 4.7 mmol/L (3.6-5.0); SODIUM 141 mmol/L (132-148); TOTAL PROTEIN 6.7 g/dL (5.8-8.3)
[2016-07-28 07:30] LABS: BAND 4 % (0-2); NEUTROPHIL 84 % (50.0-70.0); PLATELET ESTIMATE NORMAL (NORMAL)
--- NOTE | 2016-07-28 08:55 | PN ---
DATE: 07/28/2016 I examined the patient this morning. 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 Initial impression on evaluation is that this may have been a diverticulitis type of condition, especially since the localization was in the left paraumbilical and the left lower quadrant, especially. Palpation of the colon in the latter areas suggested possible inflammatory activity. I reviewed the CT scan. It indicated adjacent small bowel inflammatory activity as well. Question whether there was an abscess or a perforation. Evaluation this morning indicated the patient is status post exploratory lap yesterday by Dr. Vogel. Findings, according to the operating note, revealed a perforated Meckel's diverticulum, and he is status post small-bowel resection. The patient is still experiencing some degree of incisional pain. However, the abdominal pain experienced previously has pretty much dissipated on current medications. He has still not passed flatus yet. PHYSICAL EXAMINATION: VITAL SIGNS: I reviewed this patient's vital signs. HEENT: Significant for dry mouth. LUNGS: Clear to auscultation. HEART: Regular rhythm. ABDOMEN: Significant for being mildly distended. He has binders in place, dressings. I did not hear any bowel sounds this morning. OVERALL ASSESSMENT: This is a 51-year-old white male admitted with acute onset abdominal pain, went for exploratory laparotomy yesterday. Findings again are significant for a perforated Meckel's diverticulum. MEDICATIONS: Medications at the current time include ceftriaxone and metronidazole, analgesics plus Zofran. The patient will be followed up by the surgery service, and they will advance his diet when they feel it is clinically appropriate. I will sign off the case today. Dr. Vogel will evaluate the patient later on this morning with the housestaff. Josue Zepeda DO, PhD cc: [phone] TT: 07/28/2016 08:54:09 Confirmation # [id number] Dictation # [id number] BELKIS
[2016-07-28] MEDS: cefTRIAXone 1 gm 100 ML IVPB SCH (09:02)
[2016-07-28] MEDS: Metoprolol Succinate 50 mg XL Tab PO SCH (12:52)
[2016-07-29] MEDS: HYDROmorphone 1 mg/ml ISec IVP PRN ×6 (01:35→23:26)
[2016-07-29] MEDS: Sodium Chloride 0.9% 1,000 ML IV SCH (01:51)
[2016-07-29] MEDS: metroNIDAZOLE IV 500 mg/100 ml 100 ML IVPB SCH ×4 (05:31→23:26)
[2016-07-29 06:23] LABS: ADD MANUAL DIFF? NO
[2016-07-29 06:43] LABS: BASO # 0.01 K/mm3 (0.0-2.0); BASO % 0.1 % (0.0-3.0); EOS % 0.1 % (1.5-5.0); GRAN # 11.31 (1.4-6.5); GRAN % 76.3 % (50.0-68.0); HEMATOCRIT 36.3 % (42.0-52.0); LYMPH # 2.3 (1.2-3.4); LYMPH % 15.4 % (22.0-35.0); MEAN CELL VOLUME 87.9 fL (80.0-105.0); MEAN CORPUSCULAR HEMOGLOBIN 29.3 pg (25.0-35.0); MEAN CORPUSCULAR HGB CONC 33.3 g/dl (31.0-37.0); MEAN PLATELET VOLUME 10.7 fl (7.0-11.0); MONO # 1.2 (0.1-0.6); MONO % 8.1 % (1.0-6.0); PLATELET COUNT 256 10^3/uL (120.0-450.0); RED CELL DISTRIBUTION WIDTH 13.6 % (11.5-14.5); WHITE BLOOD COUNT 14.8 10^3/ul (4.5-11.0)
[2016-07-29 06:55] LABS: ALB/GLOB RATIO 0.9 (1.1-1.8); ALKALINE PHOSPHATASE 60 U/L (38-133); ALT/SGPT 13 U/L (7-56); AST/SGOT 16 U/L (15-59); BILIRUBIN,TOTAL 0.5 mg/dL (0.2-1.3); BLOOD UREA NITROGEN 18 mg/dL (7-21); CALCIUM 8.6 mg/dL (8.4-10.5); CARBON DIOXIDE 25 mmol/L (21-33); CHLORIDE 108 mmol/L (95-110); GFR AFRICAN-AMERICAN > 60; GLUCOSE,RANDOM 99 mg/dL (70-110); POTASSIUM 4.3 mmol/L (3.6-5.0); SODIUM 141 mmol/L (132-148); TOTAL PROTEIN 6.3 g/dL (5.8-8.3)
--- NOTE | 2016-07-29 08:52 | CP.PCM.PN ---
Subjective - Date & Time of Evaluation Date of Evaluation: 07/29/16 Time of Evaluation: 06:30 - Subjective Subjective: General Surgery Dr. Vogel Pt S&E @bedside. some pain overnight though controlled w/ medication. denies N/V , F/C. (+) Flatus (-) BM. tolerating CLD. Objective - Vital Signs/Intake and Output Vital Signs (last 24 hours): Temp Pulse Resp BP Pulse Ox 98.1 F 89 17 159/87 H 95 07/29/16 08:27 07/29/16 08:27 07/29/16 08:27 07/29/16 08:27 07/29/16 08:27 Intake and Output: 07/29/16 07/29/16 06:59 18:59 Intake Total 2290 Output Total 2 Balance 2288 - Medications Medications: Current Medications Acetaminophen (Tylenol 650 Mg Supp) 650 mg RC Q4H PRN PRN Reason: Fever >100.4 F Hydromorphone HCl (Dilaudid) 1 mg IVP Q3H PRN PRN Reason: Pain, moderate (4-7) Last Admin: 07/29/16 05:30 Dose: 1 mg Metronidazole (Flagyl) 100 mls @ 100 mls/hr IVPB Q6 [facility] PRN Reason: Protocol Last Admin: 07/29/16 05:31 Dose: 100 mls/hr Ceftriaxone Sodium (Rocephin 1 Gram Ivpb) 100 mls @ 100 mls/hr IVPB DAILY [facility] PRN Reason: Protocol Stop: 07/30/16 10:59 Last Admin: 07/28/16 09:02 Dose: 100 mls/hr Sodium Chloride (Sodium Chloride 0.9%) 1,000 mls @ 125 mls/hr IV .Q8H [facility] Last Admin: 07/29/16 01:51 Dose: 125 mls/hr Labetalol HCl (Trandate) 5 mg IV Q10M PRN PRN Reason: hypertension Metoprolol Succinate (Toprol Xl) 50 mg PO BRK [facility] Last Admin: 07/28/16 12:52 Dose: 50 mg Ondansetron HCl (Zofran Inj) 4 mg IVP Q8H PRN PRN Reason: Nausea/Vomiting Pantoprazole Sodium (Protonix Inj) 40 mg IVP DAILY [facility] Last Admin: 03/19/17 09:02 Dose: 40 mg - Labs Labs: 07/29/16 06:20 07/29/16 06:20 Laboratory Tests 07/29/16 06:20 Calcium 8.6 Total Bilirubin 0.5 AST 16 ALT 13 Alkaline Phosphatase 60 Total Protein 6.3 Albumin 3.1 - Constitutional Appears: Non-toxic, No Acute Distress - Head Exam Head Exam: NORMAL INSPECTION - Eye Exam Eye Exam: Normal appearance - ENT Exam ENT Exam: Mucous Membranes Moist - Respiratory Exam Respiratory Exam: NORMAL BREATHING PATTERN. absent: Accessory Muscle Use, Respiratory Distress - GI/Abdominal Exam GI & Abdominal Exam: Distended (minimal), Soft, Tenderness (TTP marco-incisional ). absent: Guarding, Rebound - Extremities Exam Extremities Exam: Normal Inspection - Neurological Exam Neurological Exam: Alert, Awake, Oriented x3 - Skin Skin Exam: Dry, Intact, Normal Color, Warm Assessment and Plan - Assessment and Plan (Free Text) Assessment: 51 y/o M w/ perforated Meckel's diverticulum POD#2 s/p exploratory laparotomy w / small bowel resection - Advance to FLD - serial abdominal exams - monitor WBC - f/u Cx and path - cont Abx - cont medical management per primary team - pain management, anti-emetics - GI/DVT ppx Pt discussed w/ Dr. Jaspreet Walter DO PGY1
[2016-07-29] MEDS: Metoprolol Succinate 50 mg XL Tab PO SCH (09:09)
[2016-07-29] MEDS: cefTRIAXone 1 gm 100 ML IVPB SCH (09:10)
--- NOTE | 2016-07-29 11:08 | PN ---
DATE: 07/28/2016 The patient is a 51-year-old male who was admitted to [facility] on 07/26 with abdominal p ain. He was found to have a ruptured diverticulum. He was treated with antibiotics and underwent heath rgery with Dr. Macho Vogel yesterday. Small bowel segment was resected. It was found to be a per forated diverticulum. He tolerated the procedure well. When seen today, he is sitting in a chair at the bedside. He is awake, alert, and oriented. He is c omplaining of some postsurgical pain, however, does ____ admit that the pain is different from his pa in on admission. PHYSICAL EXAMINATION: GENERAL: He is awake, alert, and oriented. HEART: Regular, however, is tachycardic. VITAL SIGNS: Blood pressure is 153/84. Heart rate is 118. He is afebrile. LABORATORY DATA: White blood cell count is 15.5, hemoglobin and hematocrit 13.6 and 39.9. Platelet count is 239. Sodium is 141, potassium 4.7. BUN and creatinine are 15 and 0.8 respectively. Glucos e is 149 So the patient tolerated his procedure well. We will be starting him on a beta-asif for the blood pressure control and heart rate control. The patient is informed and in agreement with this. We wi ll continue to follow the patient's postoperative course. Jaylen Macias MD cc: [phone] TT: 07/29/2016 11:08:03 Confirmation # [id number] Dictation # [id number] karin
[2016-07-30] MEDS: Sodium Chloride 0.9% 1,000 ML IV SCH ×2 (02:45→18:58)
[2016-07-30] MEDS: HYDROmorphone 1 mg/ml ISec IVP PRN ×5 (02:45→21:04)
[2016-07-30] MEDS: metroNIDAZOLE IV 500 mg/100 ml 100 ML IVPB SCH ×3 (05:36→17:05)
[2016-07-30] MEDS ORDERED: Oxycodone/Acetaminophen 5/325 mg Tab PO PRN (07:18)
--- NOTE | 2016-07-30 07:50 | CP.PCM.PN ---
Subjective - Date & Time of Evaluation Date of Evaluation: 07/30/16 Time of Evaluation: 06:15 - Subjective Subjective: General Surgery Dr. Vogel Pt S&E @bedside. NAEO. tolerating diet. denies pain, N/V, F/C. (+) Flatus (-) BM. Objective - Vital Signs/Intake and Output Vital Signs (last 24 hours): Temp Pulse Resp BP Pulse Ox 98.6 F 80 18 144/81 93 L 07/29/16 16:00 07/29/16 16:00 07/29/16 16:00 07/29/16 16:00 07/29/16 16:00 Intake and Output: 07/30/16 07/30/16 06:59 18:59 Intake Total 1999 240 Balance 1999 240 - Medications Medications: Current Medications Acetaminophen (Tylenol 650 Mg Supp) 650 mg RC Q4H PRN PRN Reason: Fever >100.4 F Metronidazole (Flagyl) 100 mls @ 100 mls/hr IVPB Q6 [facility] PRN Reason: Protocol Last Admin: 07/30/16 05:36 Dose: 100 mls/hr Ceftriaxone Sodium (Rocephin 1 Gram Ivpb) 100 mls @ 100 mls/hr IVPB DAILY [facility] PRN Reason: Protocol Stop: 07/30/16 10:59 Last Admin: 07/29/16 09:10 Dose: 100 mls/hr Sodium Chloride (Sodium Chloride 0.9%) 1,000 mls @ 125 mls/hr IV .Q8H [facility] Last Admin: 07/30/16 02:45 Dose: 125 mls/hr Labetalol HCl (Trandate) 5 mg IV Q10M PRN PRN Reason: hypertension Metoprolol Succinate (Toprol Xl) 50 mg PO BRK [facility] Last Admin: 07/29/16 09:09 Dose: 50 mg Ondansetron HCl (Zofran Inj) 4 mg IVP Q8H PRN PRN Reason: Nausea/Vomiting Oxycodone/Acetaminophen (Percocet 5/325 Mg Tab) 1 tab PO Q6H PRN PRN Reason: Pain, moderate (4-7) Stop: 08/02/16 07:19 Pantoprazole Sodium (Protonix Inj) 40 mg IVP DAILY [facility] Last Admin: 07/29/16 09:09 Dose: 40 mg - Constitutional Appears: Non-toxic, No Acute Distress - Head Exam Head Exam: NORMAL INSPECTION - Eye Exam Eye Exam: Normal appearance - ENT Exam ENT Exam: Mucous Membranes Moist - Respiratory Exam Respiratory Exam: NORMAL BREATHING PATTERN. absent: Accessory Muscle Use, Respiratory Distress - GI/Abdominal Exam GI & Abdominal Exam: Distended (minimal), Soft, Tenderness (minimal TTP marco- incisional). absent: Firm, Guarding, Rigid, Rebound Additional comments: dressing changed c/d/i cody in place incision well approximated mild bruising around incision site - Extremities Exam Extremities Exam: Normal Inspection - Neurological Exam Neurological Exam: Alert, Awake, Oriented x3 - Psychiatric Exam Psychiatric exam: Normal Affect, Normal Mood - Skin Skin Exam: Dry, Intact, Normal Color, Warm Assessment and Plan - Assessment and Plan (Free Text) Assessment: 51 y/o M w/ perforated Meckel's diverticulum POD#3 s/p exploratory laparotomy w / small bowel resection - Advance diet as tolerated - monitor WBC - f/u Cx and path - cont Abx - cont medical management per primary team - pain management, anti-emetics - GI/DVT ppx Pt discussed w/ Dr. Jaspreet Walter DO PGY1
[2016-07-30 08:27] LABS: HEMATOCRIT 39.9 % (42.0-52.0); MEAN CELL VOLUME 87.7 fL (80.0-105.0); MEAN CORPUSCULAR HEMOGLOBIN 29.9 pg (25.0-35.0); MEAN CORPUSCULAR HGB CONC 34.1 g/dl (31.0-37.0); RED CELL DISTRIBUTION WIDTH 13.6 % (11.5-14.5); WHITE BLOOD COUNT 10.9 10^3/ul (4.5-11.0)
[2016-07-30] MEDS: Metoprolol Succinate 50 mg XL Tab PO SCH (08:34)
[2016-07-30] MEDS: cefTRIAXone 1 gm 100 ML IVPB SCH (09:45)
--- NOTE | 2016-07-30 10:43 | PN ---
DATE: 07/29/2016 The patient is a 51-year-old male who presented to [facility] 3 days ago complaining of a cute onset of abdominal pain. Workup showed he had a perforated diverticulum from the small intestin e. He eventually underwent surgery with Dr. Vogel where a section of the small bowel was resected and was found to be a ruptured Meckel diverticulum. The patient is doing well postoperatively. When seen, he is awake, alert, oriented. He is standing and ambulating around the room. His family is p resent. He is feeling well; however, there is extreme pain from his surgical wound. The patient was warned not to exert himself too much as to cause an incisional rupture. PHYSICAL EXAMINATION: VITAL SIGNS: He is afebrile, blood pressure is 144/81, heart rate is 93. LABORATORY DATA: White blood cell count is down to 14.8, hemoglobin is 12.1, hematocrit 36.3. BUN a nd creatinine are 18 and 0.7 respectively. Sodium is 141, potassium is 4.3. So, we will begin further physical therapy, ambulation of the patient. He apparently had a regular d iet to eat earlier today and is doing well. The patient, however, feels he is not quite ready yet fo r discharge to home because of his pain level and unsteadiness with ambulation. We will continue to follow the patient closely. Jaylen Macias MD cc: [phone] TT: 07/30/2016 10:43:29 Confirmation # [id number] Dictation # [id number] cheli
--- NOTE | 2016-07-30 11:16 | PN ---
DATE: 07/30/2016 The patient is seen this morning. His pathology is not back, but there is clearly a perforated Mecke l's diverticulum. The patient can be discharged, from my point of view, on oral antibiotics and anal gesics. We will see him in the office in about a week. Macho Vogel MD cc: [phone] TT: 07/30/2016 10:53:04 Confirmation # [id number] Dictation # [id number] 07/30/2016 10:15:10
[2016-07-31] MEDS: HYDROmorphone 1 mg/ml ISec IVP PRN ×6 (00:37→23:28)
[2016-07-31] MEDS: metroNIDAZOLE IV 500 mg/100 ml 100 ML IVPB SCH ×4 (00:42→17:05)
[2016-07-31] MEDS: Metoprolol Succinate 50 mg XL Tab PO SCH (08:33)
[2016-07-31] MEDS: Sodium Chloride 0.9% 1,000 ML IV SCH (08:34)
--- NOTE | 2016-07-31 09:05 | PN ---
DATE: 07/30/2016 The patient was seen this Friday, late morning. in room 370, bed 2 with his at the bedside. He is sitting up in bed, awake, alert, comfortable, complaining of some abdominal pain, bloating and di stention. He feels a little nauseous, has a difficult time eating. PHYSICAL EXAMINATION: ABDOMEN: Distended, tympanitic with very few bowel sounds. IMPRESSION: Postop ruptured Meckel's diverticulum with bowels that are slow to wake up. We will dec rease his diet from regular to clear liquids. I do not think we need a nasogastric tube at this time . We will take a slow approach. I cautioned the patient about analgesics, specifically narcotic martine lgesics, for pain as this will slow the bowel. He is not a narcotic use. In fact, does not take any medications at home, even Tylenol or Advil for typical aches and pains. Case discussed with surgeon , Dr. Vogel, later in the day and we will follow and increase diet slowly in the future. Macho Macias MD cc: [phone] TT: 07/31/2016 09:05:24 Confirmation # [id number] Dictation # [id number]
[2016-07-31] MEDS: cefTRIAXone 1 gm 100 ML IVPB SCH (10:30)
--- NOTE | 2016-07-31 10:52 | CP.PCM.PN ---
Subjective - Date & Time of Evaluation Date of Evaluation: 07/31/16 Time of Evaluation: 10:49 - Subjective Subjective: SURGERY NOTE FOR DR. ESPINOZA 51M seen and examined at bedside. Denies abdominal pain, states he is tolerating his food much better this morning. Objective - Vital Signs/Intake and Output Vital Signs (last 24 hours): Temp Pulse Resp BP Pulse Ox 98.6 F 85 20 145/75 97 07/31/16 08:30 07/31/16 08:33 07/31/16 08:30 07/31/16 08:33 07/31/16 08:30 Intake and Output: 07/31/16 07/31/16 06:59 18:59 Intake Total 1620 Balance 1620 - Medications Medications: Current Medications Acetaminophen (Tylenol 650 Mg Supp) 650 mg RC Q4H PRN PRN Reason: Fever >100.4 F Hydromorphone HCl (Dilaudid) 1 mg IVP Q4H PRN PRN Reason: Pain, moderate (4-7) Last Admin: 07/31/16 05:21 Dose: 1 mg Metronidazole (Flagyl) 100 mls @ 100 mls/hr IVPB Q6 [facility] PRN Reason: Protocol Last Admin: 07/31/16 05:16 Dose: 100 mls/hr Sodium Chloride (Sodium Chloride 0.9%) 1,000 mls @ 125 mls/hr IV .Q8H [facility] Last Admin: 07/31/16 08:34 Dose: 125 mls/hr Ceftriaxone Sodium (Rocephin 1 Gram Ivpb) 100 mls @ 100 mls/hr IVPB DAILY [facility] PRN Reason: Protocol Last Admin: 07/31/16 10:30 Dose: 100 mls/hr Labetalol HCl (Trandate) 5 mg IV Q10M PRN PRN Reason: hypertension Metoprolol Succinate (Toprol Xl) 50 mg PO BRK [facility] Last Admin: 07/31/16 08:33 Dose: 50 mg Ondansetron HCl (Zofran Inj) 4 mg IVP Q8H PRN PRN Reason: Nausea/Vomiting Last Admin: 07/30/16 12:23 Dose: 4 mg Oxycodone/Acetaminophen (Percocet 5/325 Mg Tab) 1 tab PO Q6H PRN PRN Reason: Pain, moderate (4-7) Stop: 08/02/16 07:19 Last Admin: 07/30/16 11:05 Dose: 1 tab Pantoprazole Sodium (Protonix Inj) 40 mg IVP DAILY [facility] Last Admin: 07/31/16 09:40 Dose: 40 mg - Labs Labs: 07/30/16 08:10 07/29/16 06:20 PT 11.5 Seconds (9.9-11.8) 07/26/16 00:35 INR 1.06 (0.93-1.08) 07/26/16 00:35 APTT 33.7 Seconds (23.7-30.8) H 07/26/16 00:35 - Constitutional Appears: Non-toxic, No Acute Distress - Head Exam Head Exam: ATRAUMATIC - Respiratory Exam Respiratory Exam: Clear to Ausculation Bilateral, NORMAL BREATHING PATTERN - Cardiovascular Exam Cardiovascular Exam: REGULAR RHYTHM, +S1, +S2 - GI/Abdominal Exam GI & Abdominal Exam: Soft. absent: Distended, Firm, Guarding, Rigid, Tenderness , Rebound Additional comments: incisions CDI - Neurological Exam Neurological Exam: Alert, Awake - Skin Skin Exam: Dry, Intact, Normal Color, Warm Assessment and Plan - Assessment and Plan (Free Text) Assessment: 51M with perforated Meckel's diverticulum POD#4 s/p exploratory laparotomy w/ small bowel resection Plan: - patient cleared since tolerating diet - follow up with Dr. Espinoza in outpatient in one week Further recs discuss with Dr. Jaspreet Obrien, PGY1
--- NOTE | 2016-07-31 19:50 | PN ---
DATE: 07/31/2016 Currently residing in room 370, bed 2 of the [facility]. The patient is a 51-year-old male who was admitted to [facility] 5 days ago with sudden o nset of abdominal pain. He was found to have a perforated Meckel diverticulum of the small intestine . He was treated with intravenous fluids, intravenous antibiotics. He was taken to the operating ro om with Dr. Macho Vogel, the surgeon, where the perforated diverticulum was resected. Postoperati vely, the patient had been doing well. His diet was being advanced, however, he started to develop s ome abdominal pain, some nausea without vomiting. Therefore, his diet was cut back once again to andres ar liquids. At this point, when seen today, the patient is sitting up in bed. His and daughter are present at bedside, and the patient says he is feeling better and doing well. LUNGS: Clear. HEART: Regular. ABDOMEN: Soft. I could not hear any bowel sounds. However, the patient admitted to a lot of flatus earlier today. Culture of the wound showed positive for E. coli, which was sensitive to all antibiotics tested. The patient had been on Flagyl postoperatively. At this point, I think will begin Rocephin 1 g IV q. da y. We will increase his diet to full liquid diet, and continue to follow the patient closely. Jaylen Macias MD cc: [id number] TT: 07/31/2016 19:50:05 Confirmation # [id number] Dictation # [id number] karin
[2016-08-01] MEDS: metroNIDAZOLE IV 500 mg/100 ml 100 ML IVPB SCH ×3 (00:14→13:36)
[2016-08-01] MEDS: Sodium Chloride 0.9% 1,000 ML IV SCH ×2 (05:23→13:35)
--- NOTE | 2016-08-01 07:07 | CP.PCM.PN ---
Subjective - Date & Time of Evaluation Date of Evaluation: 08/01/16 Time of Evaluation: 06:40 - Subjective Subjective: Pt seen and evaluated at bedside. Claims to be eating well, denies vomiting overnight, and is passing gas. Objective - Vital Signs/Intake and Output Vital Signs (last 24 hours): Temp Pulse Resp BP Pulse Ox 98.9 F 83 20 150/82 96 07/31/16 16:00 07/31/16 16:00 07/31/16 16:00 07/31/16 16:00 07/31/16 16:00 Intake and Output: 08/01/16 08/01/16 06:59 18:59 Intake Total 1650 425 Output Total 1200 Balance 1650 -775 - Medications Medications: Current Medications Acetaminophen (Tylenol 650 Mg Supp) 650 mg RC Q4H PRN PRN Reason: Fever >100.4 F Hydromorphone HCl (Dilaudid) 1 mg IVP Q4H PRN PRN Reason: Pain, moderate (4-7) Last Admin: 07/31/16 23:28 Dose: 1 mg Metronidazole (Flagyl) 100 mls @ 100 mls/hr IVPB Q6 KAYLEN PRN Reason: Protocol Last Admin: 08/01/16 05:23 Dose: 100 mls/hr Sodium Chloride (Sodium Chloride 0.9%) 1,000 mls @ 125 mls/hr IV .Q8H [facility] Last Admin: 08/01/16 05:23 Dose: 125 mls/hr Ceftriaxone Sodium (Rocephin 1 Gram Ivpb) 100 mls @ 100 mls/hr IVPB DAILY KAYLEN PRN Reason: Protocol Last Admin: 07/31/16 10:30 Dose: 100 mls/hr Labetalol HCl (Trandate) 5 mg IV Q10M PRN PRN Reason: hypertension Metoprolol Succinate (Toprol Xl) 50 mg PO BRK KAYLEN Last Admin: 07/31/16 08:33 Dose: 50 mg Ondansetron HCl (Zofran Inj) 4 mg IVP Q8H PRN PRN Reason: Nausea/Vomiting Last Admin: 07/30/16 12:23 Dose: 4 mg Oxycodone/Acetaminophen (Percocet 5/325 Mg Tab) 1 tab PO Q6H PRN PRN Reason: Pain, moderate (4-7) Stop: 08/02/16 07:19 Last Admin: 07/30/16 11:05 Dose: 1 tab Pantoprazole Sodium (Protonix Inj) 40 mg IVP DAILY KAYLEN Last Admin: 07/31/16 09:40 Dose: 40 mg - Labs Labs: 07/30/16 08:10 07/29/16 06:20 PT 11.5 Seconds (9.9-11.8) 07/26/16 00:35 INR 1.06 (0.93-1.08) 07/26/16 00:35 APTT 33.7 Seconds (23.7-30.8) H 07/26/16 00:35 - Additional Findings Additional findings: - Constitutional Appears: Non-toxic, No Acute Distress - Head Exam Head Exam: ATRAUMATIC - Respiratory Exam Respiratory Exam: Clear to Ausculation Bilateral, NORMAL BREATHING PATTERN - Cardiovascular Exam Cardiovascular Exam: REGULAR RHYTHM, +S1, +S2 - GI/Abdominal Exam GI & Abdominal Exam: Soft. absent: Distended, Firm, Guarding, Rigid, Tenderness , Rebound Additional comments: incisions CDI, abdominal contusion on L abdomen - Neurological Exam Neurological Exam: Alert, Awake - Skin Skin Exam: Dry, Intact, Normal Color, Warm Assessment and Plan - Assessment and Plan (Free Text) Plan: 51M with perforated Meckel's diverticulum POD#5 s/p exploratory laparotomy w/ small bowel resection Plan: - clear for d/c - ADAT - follow up with Dr. Vogel in outpatient in one week Further recs discuss with Dr. Jaspreet Landeros, PGY1
[2016-08-01 07:24] LABS: HEMATOCRIT 37.3 % (42.0-52.0); MEAN CELL VOLUME 85.7 fL (80.0-105.0); MEAN CORPUSCULAR HEMOGLOBIN 28.7 pg (25.0-35.0); MEAN CORPUSCULAR HGB CONC 33.5 g/dl (31.0-37.0); MEAN PLATELET VOLUME 10.3 fl (7.0-11.0); RED CELL DISTRIBUTION WIDTH 13.1 % (11.5-14.5); WHITE BLOOD COUNT 9.1 10^3/ul (4.5-11.0)
[2016-08-01] MEDS: Metoprolol Succinate 50 mg XL Tab PO SCH (07:40)
[2016-08-01 08:43] VITALS: TEMP 98.5; O2SAT 97
[2016-08-01] MEDS: cefTRIAXone 1 gm 100 ML IVPB SCH (09:08)
[2016-08-01] MEDS: HYDROmorphone 1 mg/ml ISec IVP PRN (09:12)
[2016-08-01 18:13] VITALS: BP 151/77; PULSE 77; RESP 18
[2016-08-02] MEDS ORDERED: Pantoprazole 40 mg EC Tab PO SCH (10:00)
--- NOTE | 2016-08-02 22:04 | DS ---
This is a 51-year-old man known to my practice for several years who presented to the Emergency Room with acute abdominal pain. The pain was rather severe, of sudden onset over the last day or 2 after some weeks of generalized abdominal discomfort. The patient is otherwise healthy, does not take medi cations for pain or GI symptoms. He was seen in the Emergency Room. CT scan was done showing free a ir under the diaphragm and perforated viscus. He was taken to the operating room by Dr. Manny Vogel and a perforated Meckel's diverticulum was found and surgically repaired. Postoperative course was a bit difficult in that the GI motility was slow to return. Diet was initially advanced but then decr eased, and 2 days later patient began feeling of abdominal sounds with increased bowel movements and passing gas. On the day of discharge (), I saw him in the morning. He had eaten the night b efore and a light breakfast that day. He still had not had a bowel movement but was passing gas. I told patient to see how he did with lunch. After lunch, I spoke to the patient's . He was doing well, tolerated lunch well, and was ready for discharge to home. So, discharge order was called in. No additional antibiotics will be needed. No new medications were called except for something for pain control from the surgical site. A tramadol prescription for 50 mg was called in to his drugstor e. He will follow up with us in a week as well as with the surgeon. FINAL DISCHARGE DIAGNOSES: Ruptured Meckel's diverticulum with peritonitis and free air under the di aphragm. Macho Macias MD cc: [id number] TT: 08/02/2016 22:03:19 bryon
--- NOTE | 2016-08-13 11:13 | OP ---
PROCEDURE DATE: 07/29/2016 PREOPERATIVE DIAGNOSIS: Small bowel perforation. POSTOPERATIVE DIAGNOSIS: Small bowel perforation. OPERATION PERFORMED: Laparotomy and small bowel resection. DESCRIPTION OF PROCEDURE: In the operating room, the patient was identified by name, number, procedu re, laterality, my name and the consent. The abdomen was entered. There was a massive mass in the l ower quadrant. I could not get around it laparoscopically using a single side port and a Visiport in the midline. Quickly opened the lower midline. The abdomen was entered. The small bowel was lysed , eventually came into an abscess that was cultured aerobically and anaerobically and what was probab ly a Meckel's diverticulum was identified. It was perforated and inflamed. The entire area was take n with the WILTON and the . The mesentery was taken with the LigaSure. The normal bowel on either side was lined up after Vicryl was used to close the mesentery. GIAs fired. The defect was closed with a TA 60. There was some imbrication with silk. The abdomen was copiously irrigated and dried. The entire abscess was removed. It was not drained. The omentum was placed over it. The in cision was closed with running #1 PDS above and below, subcutaneous Vicryl, cody. The patient ta scooby to recovery room in good condition. Lap, sponge and needle counts were declared correct. Macho Vogel MD cc: [id number] TT: 08/13/2016 11:12:18 [email or web address]
== END 2016-08-01 18:20 | disposition home or self-care (01) | DRG 329 ==
LOC: ED 20:39 → ERH 07-26 01:08 → 3RSO 07-26 02:22
PROVIDERS: ADMIT Internal Medicine; ATTEND Internal Medicine
PROC: 0DT80ZZ Resection of Small Intestine, Open Approach (ICD-10-PCS; principal; 2016-07-27 13:00)
DX: Q43.0 Meckel's diverticulum (displaced) (hypertrophic) (principal); K63.1 Perforation of intestine (nontraumatic); K65.1 Peritoneal abscess; E73.9 Lactose intolerance, unspecified; F17.210 Nicotine dependence, cigarettes, uncomplicated; K21.9 Gastro-esophageal reflux disease without esophagitis; Z87.11 Personal history of peptic ulcer disease; B96.20 Unspecified Escherichia coli [E. coli] as the cause of diseases classified elsewhere